=== PATIENT | male | born 1955 | race Caucasian/White ===

== ENCOUNTER 2022-09-25 15:07 | Outpatient (REF) | payer OTHER, SELFPAY | END 2022-09-25 15:08 | disposition home or self-care (01) | LOC: HO.HOSX 15:07 | PROVIDERS: PCP Internal Medicine; Visit Provider Physician Assistant | DX: Z13.89 Encounter for screening for other disorder (principal) ==

== ENCOUNTER 2022-11-07 13:56 | Outpatient (REF) | payer OTHER, SELFPAY ==
--- NOTE | ~2022-11-07 | XR_ITS ---
EXAMINATION: XR LUMBOSACRAL SPINE WITH OBLIQUES CLINICAL INFORMATION: Spinal stenosis COMPARISON: None available. TECHNIQUE: AP lateral and flexion-extension views FINDINGS: There are postsurgical changes at L4-L5 with posterior fusion hardware with rods and transpedicular screws and disc prosthesis at L4-L5. Orthopedic hardware appears intact. Disc prosthesis appears tilted on the AP view and there is question of right-sided lucency. There is mild 2 mm anterior subluxation of L4 with respect L5. Appears stable on flexion-extension views. There is mild degenerative spondylosis and disc space narrowing seen at all other levels. Mild atherosclerotic disease. XR/XR lumbar spine 4V min IMPRESSION: Postsurgical changes at L4-L5. Angulated disc prosthesis at L4-L5 on the AP view and question right-sided periprosthetic lucency. Mild 2 mm anterior subluxation of L4 with respect L5 stable on flexion-extension views. Multilevel mild degenerative changes.
== END 2022-11-07 13:57 | disposition home or self-care (01) ==
LOC: HO.HOSX 13:56
PROVIDERS: Visit Provider Physician Assistant
DX: M48.061 Spinal stenosis, lumbar region without neurogenic claudication (principal); Z47.89 Encounter for other orthopedic aftercare
CPT/HCPCS: 72110